=== PATIENT | female | born 1975 | race Caucasian/White ===

== ENCOUNTER 2018-09-24 22:46 | Emergency (ER) | payer SELFPAY ==
[~2018-09-24] VITALS: Ht 154.9 cm; Wt 63.0 kg
[2018-09-24 22:52] VITALS: BP 122/76
--- NOTE | 2018-09-24 22:56 | NUR ---
TO LOBBY VIA W/C, A/E BED, DC LYMAN NOTED
--- NOTE | 2018-09-24 23:30 | NUR ---
PATIENT BIB WC TO ER BED 9.
--- NOTE | 2018-09-24 23:35 | NUR ---
ASSUMED CARE OF PT AT THIS TIME. C/O WORSENING, CHRONIC LOW BACK PAIN X 12 HOURS. PT SEEN AT PAIN MANAGEMENT THIS MORNING AND GIVEN EPIDURAL STEROID INJECTION AND STATES PAIN IS WORSE THIS EVENING. PT IS AAOX4;PATIENT STATES PAIN OF 0/10 AT THIS TIME; VSS; PATIENT POSITIONED FOR COMFORT; HOB ELEVATED; BEDRAILS UP X2; BED DOWN. ER MD MADE AWARE OF PT STATUS. WILL CONTINUE TO MONITOR.
[2018-09-24] MEDS ORDERED: MORPHINE SULFATE 4 MG/ML SYR IM ONE (23:45)
[2018-09-25] MEDS ORDERED: MORPHINE SULFATE 4 MG/ML SYR IM ONE (01:25)
[2018-09-25 01:55] VITALS: BP 118/74
--- NOTE | 2018-09-25 01:55 | NUR ---
Patient discharged with v/s stable. Written and verbal after care instructions given and explained. Patient alert, oriented and verbalized understanding of instructions. Ambulatory with steady gait. All questions addressed prior to discharge. ID band removed. Patient advised to follow up with PMD. Rx of NORCO AND COLACE given. Patient educated on indication of medication including possible reaction and side effects. Opportunity to ask questions provided and answered.
== END 2018-09-25 01:55 | disposition home or self-care (01) ==
LOC: MED 22:46
DX: M54.5 Low back pain (principal); F17.200 Nicotine dependence, unspecified, uncomplicated; Z88.0 Allergy status to penicillin; Z98.890 Other specified postprocedural states
CPT/HCPCS: 81002; 81025; 96372; 99283; J2270